=== PATIENT | female | born 1970 | race African-American/Black ===

== ENCOUNTER 2020-10-04 16:49 | Emergency (ER) | payer MEDICAID ==
[~2020-10-04] VITALS: Ht 165.1 cm; Wt 78.0 kg
[~2020-10-04 16:49] MED LIST: cephalexin; tylenol
[2020-10-04] MEDS ORDERED: HYDROCODONE/ACETAMINOPHEN 5/325MG TABLET PO ONE (17:30)
[2020-10-04 17:39] VITALS: BP 118/73
[2020-10-04] MEDS ORDERED: LIDOCAINE HCL 1% 20ML VIAL (Pyxis) INJ INFIL ONE (18:30)
== END 2020-10-04 19:49 | disposition home or self-care (01) ==
LOC: ER 16:49
DX: S92.415A Nondisplaced fracture of proximal phalanx of left great toe, initial encounter for closed fracture (principal); Z90.49 Acquired absence of other specified parts of digestive tract; Z91.018 Allergy to other foods; Z88.5 Allergy status to narcotic agent; W22.03XA Walked into furniture, initial encounter; Y93.89 Activity, other specified; Y92.018 Other place in single-family (private) house as the place of occurrence of the external cause
CPT/HCPCS: 73630; 99283; J3490

== ENCOUNTER 2025-10-03 18:54 | Emergency (ER) | payer MEDICAID ==
[~2025-10-03] VITALS: Ht 165.1 cm; Wt 67.0 kg
[2025-10-03 19:31] VITALS: TEMP 36.9; O2SAT 96
[2025-10-03 21:52] LABS: TROPONIN I HIGH SENSITIVITY < 4 ng/L (3.0-34)
[2025-10-03] MEDS: DEXAMETHASONE 10 MG/ML VIAL PO ONE (22:01)
[2025-10-03 22:14] LABS: BASOPHILS % 0.9 % (0.0-2.0); EOSINOPHILS % 1.7 % (0.0-5.0); HEMATOCRIT. 41.2 % (36.0-48.0); HEMOGLOBIN. 13.8 g/dL (12.0-16.0); LYMPHOCYTES % 31.3 % (20.0-50.0); MEAN PLATELET VOLUME 8.9 fl (7.4-10.4); MONOCYTES % 9.3 % (2.0-8.0); NEUTROPHILS % 56.8 % (40.0-76.0); PLATELET 207 x1000/uL (130-400); RED BLOOD CELL COUNT 4.68 mill/uL (4.2-5.4); RED CELL DISTRIBUTION WIDTH 14.4 % (11.6-14.6)
[2025-10-03 22:31] LABS: CREATININE 0.9 mg/dL (0.6-1.0); UREA NITROGEN BLOOD 10 mg/dL (9-23)
[2025-10-03] MEDS ORDERED: IBUP-1455 MT (22:36)
[2025-10-03] MEDS ORDERED: BENZ1LOZ73 MT (22:36)
[2025-10-03 23:06] VITALS: BP 105/67; PULSE 89; RESP 16; O2SAT 98
== END 2025-10-03 23:08 | disposition home or self-care (01) ==
LOC: ER 18:54
DX: J06.9 Acute upper respiratory infection, unspecified (principal); R06.02 Shortness of breath; Z90.49 Acquired absence of other specified parts of digestive tract; Z79.899 Other long term (current) drug therapy; Z88.5 Allergy status to narcotic agent
CPT/HCPCS: 99285; 71045; 80048; 83880; 85025; 84484; 36415; 93005; J1100